=== PATIENT | male | born 1930 | race Caucasian/White ===

== ENCOUNTER 2016-08-05 15:42 | Observation (INO) | payer MEDICARE, OTHER ==
[~2016-08-05] VITALS: Ht 182.9 cm; Wt 90.0 kg
[2016-08-05 15:50] VITALS: BP 149/96; PULSE 119; RESP 20; TEMP 98.1; O2SAT 99
[2016-08-05 15:56] VITALS: BP 149/96; PULSE 122; RESP 20; TEMP 98.1; O2SAT 99
--- NOTE | 2016-08-05 15:59 | PD ---
HPI Chief Complaint: Psychiatric Symptoms Time Seen by Provider: 15:57 Travel History International Travel<30 days: No Contact w/Intl Traveler<30days: No Traveled to known affect area: No History of Present Illness HPI Patient comes in under a [place] act by police for allegedly becoming aggressive and shoveling family. Patient has a reported history is Alzheimer's and does not recall the incident. Patient is uncertain why he is here. Denies any medical complaints currently. Denies any chest pain, shortness of breath, nausea or vomiting, abdominal pain, fevers, headache, or pain anywhere. PFSH Past Medical History Atrial Fibrillation: Yes Dementia: Yes (Alzheimer's) Hypertension: Yes Social History Alcohol Use: Yes Tobacco Use: No Substance Use: No Allergies-Medications (Allergen,Severity, Reaction): Coded Allergies: No Known Allergies (Unverified , 08/05/16) Reported Meds & Prescriptions Reported Meds & Active Scripts Active Reported Thiamine HCl 1 Pow Pow Unknown Dose PO DAILY Finasteride 5 Mg Tab 5 Mg PO TID Do not crush. Multiple Vitamin 1 Tab 1 Tab PO DAILY Aricept (Donepezil) 5 Mg Tab 5 Mg PO HS Folate (Folic Acid) 1 Mg Tab 1 Mg PO DAILY Amlodipine (Amlodipine Besylate) 5 Mg Tab 5 Mg PO DAILY Toprol XL (Metoprolol Succinate) 25 Mg Tab 25 Mg PO TID Lisinopril 10 Mg Tab 10 Mg PO BID Review of Systems Except as stated in HPI: all other systems reviewed are Neg Physical Exam Narrative GENERAL: Well-developed, overly nourished, in no acute distress, and non-ill appearing. SKIN: Warm and dry. HEAD: Atraumatic. Normocephalic. EYES: Pupils equal and round. EOMI. No scleral icterus. No injection or drainage. ENT: No nasal bleeding or discharge. Mucous membranes pink and moist. NECK: Trachea midline. Supple. No nuclear rigidity. CARDIOVASCULAR: Regular rate and rhythm. No murmur appreciated. RESPIRATORY: No accessory muscle use. No respiratory distress. Clear to auscultation. Breath sounds equal bilaterally. MUSCULOSKELETAL: No obvious deformities. No clubbing. No cyanosis. No edema. Full range of motion. NEUROLOGICAL: Awake and alert. No obvious cranial nerve deficits. Motor grossly within normal limits. Normal speech. PSYCHIATRIC: Appropriate mood and affect; insight and judgment normal. Data Data Last Documented VS Vital Signs Date Time Temp Pulse Resp B/P Pulse Ox O2 Delivery O2 Flow Rate FiO2 08/05/16 15:56 98.1 122 20 149/96 99 Room Air Orders Complete Blood Count With Diff (08/05/16 15:55) Comprehensive Metabolic Panel (08/05/16 15:55) Urinalysis - C+S If Indicated (08/05/16 15:55) Psych Screen (08/05/16 15:55) Drug Screen, Random Urine (08/05/16 15:55) Alcohol (Ethanol) (08/05/16 15:55) Salicylates (Aspirin) (08/05/16 15:55) Tylenol (Acetaminophen) (08/05/16 15:55) Electrocardiogram (08/05/16 ) Sodium Chlor 0.9% 1000 Ml Inj (Ns 1000 M (08/05/16 16:45) Sodium Chlorid 0.9% 500 Ml Inj (Ns 500 M (08/05/16 16:45) Prothrombin Time / Inr (Pt) (08/05/16 16:49) Act Partial Throm Time (Ptt) (08/05/16 16:49) Diet Heart Healthy (08/05/16 Dinner) Labs Laboratory Tests Test 08/05/16 08/05/16 08/05/16 16:10 16:25 16:55 White Blood Count 6.5 TH/MM3 Red Blood Count 4.82 MIL/MM3 Hemoglobin 14.7 GM/DL Hematocrit 43.3 % Mean Corpuscular Volume 89.9 FL Mean Corpuscular Hemoglobin 30.6 PG Mean Corpuscular Hemoglobin 34.0 % Concent Red Cell Distribution Width 13.0 % Platelet Count 150 TH/MM3 Mean Platelet Volume 7.7 FL Neutrophils (%) (Auto) 82.6 % Lymphocytes (%) (Auto) 8.9 % Monocytes (%) (Auto) 6.4 % Eosinophils (%) (Auto) 0.4 % Basophils (%) (Auto) 1.7 % Neutrophils # (Auto) 5.4 TH/MM3 Lymphocytes # (Auto) 0.6 TH/MM3 Monocytes # (Auto) 0.4 TH/MM3 Eosinophils # (Auto) 0.0 TH/MM3 Basophils # (Auto) 0.1 TH/MM3 CBC Comment DIFF FINAL Differential Comment Sodium Level 141 MEQ/L Potassium Level 5.3 MEQ/L Chloride Level 107 MEQ/L Carbon Dioxide Level 22.2 MEQ/L Anion Gap 12 MEQ/L Blood Urea Nitrogen 14 MG/DL Creatinine 1.56 MG/DL Estimat Glomerular Filtration 42 ML/MIN Rate Random Glucose 92 MG/DL Calcium Level 8.8 MG/DL Total Bilirubin 0.7 MG/DL Aspartate Amino Transf 46 U/L (AST/SGOT) Alanine Aminotransferase 21 U/L (ALT/SGPT) Alkaline Phosphatase 54 U/L Total Protein 7.3 GM/DL Albumin 3.6 GM/DL Salicylates Level LESS THAN 1.7 MG/DL Acetaminophen Level LESS THAN 2.0 MCG/ML Ethyl Alcohol Level 48 MG/DL Urine Color YELLOW Urine Turbidity CLEAR Urine pH 5.5 Urine Specific [place] 1.009 Urine Protein TRACE mg/dL Urine Glucose (UA) NEG mg/dL Urine Ketones NEG mg/dL Urine Occult Blood NEG Urine Nitrite NEG Urine Bilirubin NEG Urine Urobilinogen LESS THAN 2.0 MG/DL Urine Leukocyte Esterase NEG Urine RBC LESS THAN 1 /hpf Urine WBC 1 /hpf Urine Hyaline Casts 2 /lpf Urine Mucus FEW /lpf Microscopic Urinalysis Comment CULT NOT INDICATED Prothrombin Time 11.6 SEC Prothromb Time International 1.0 RATIO Ratio Activated Partial 22.2 SEC Thromboplast Time MDM Medical Decision Making Medical Screen Exam Complete: Yes Emergency Medical Condition: Yes Interpretation(s) EKG reveiwed by Dr. Tamez shows A-fib with ventricular rate of 118. No STEMI. Differential Diagnosis A. fib with RVR, electrolyte abnormality, intoxication, dementia, other Narrative Course Patient seen and examined. Initial laboratory studies were obtained and reviewed. Patient is hydrated with IV fluid. EKG is obtained and reviewed by Dr. Tamez. Discussed patient with Dr. Tamez who recommends having the patient placed in observation for acute kidney injury. Discussed also has plan care of patient. All questions were answered. Physician Communication Physician Communication [phone] Hernandez, who is agreeable to admit the patient. Diagnosis Primary Impression: Acute kidney injury Admitting Information Admitting Physician Requests: Observation Condition: Stable Sincere Wood Aug 05, 2016 15:59
[2016-08-05 16:37] LABS: AUTOMATED NEUTROPHIL # 5.4 TH/MM3 (1.8-7.7); BASOPHIL # 0.1 TH/MM3 (0-0.2); BASOPHIL % 1.7 % (0.0-2.0); EOSINOPHIL % 0.4 % (0.0-4.0); HEMATOCRIT 43.3 % (39.0-51.0); HEMO FLAGS DIFF FINAL; LYMPH % 8.9 % (9.0-44.0); LYMPHOCYTE # 0.6 TH/MM3 (1.0-4.8); MEAN CELL VOLUME 89.9 FL (80.0-100.0); MEAN CORPUSCULAR HEMOGLOBIN 30.6 PG (27.0-34.0); MONO % 6.4 % (0.0-8.0); NEUT % 82.6 % (16.0-70.0); PLATELET COUNT 150 TH/MM3 (150-450); RED BLOOD COUNT 4.82 MIL/MM3 (4.50-5.90); WHITE BLOOD COUNT 6.5 TH/MM3 (4.0-11.0)
[2016-08-05] MEDS ORDERED: SODIUM CHLOR 0.9% 1000 ML INJ 1,000 ML IV ONE (16:45)
[2016-08-05] MEDS ORDERED: SODIUM CHLORID 0.9% 500 ML INJ 500 ML IV ONE (16:45)
[2016-08-05 16:55] LABS: ANION GAP 12 MEQ/L (5-15); AST (GOT) 46 U/L (15-37); BICARBONATE 22.2 MEQ/L (21.0-32.0); BLOOD UREA NITROGEN 14 MG/DL (7-18); CHLORIDE 107 MEQ/L (98-107); GLOMERULAR FILTRATION RATE 42 ML/MIN (>89); SODIUM (NA) 141 MEQ/L (136-145)
[2016-08-05 17:01] LABS: ALKALINE PHOSPHATASE 54 U/L (45-117); TOTAL BILIRUBIN ADULT 0.7 MG/DL (0.2-1.0)
[2016-08-05 17:11] LABS: ACETAMINOPHEN LESS THAN 2.0 MCG/ML (10.0-30.0); POTASSIUM 5.3 MEQ/L (3.5-5.1)
[2016-08-05 17:19] LABS: BLOOD, URINE NEG (NEG); COMMENT (UR) CULT NOT INDICATED; CULTURE IF INDICATED CULT NOT INDICATED; GLUCOSE,URINE NEG (NEG); HYALINE CAST, URINE 2 /lpf (RARE); KETONE, URINE NEG (NEG); MUCUS URINE FEW /lpf (OCC); NITRITE,URINE NEG (NEG); PH, URINE 5.5 (5.0-8.5); URINE COLOR YELLOW (YELLW/STRAW)
[2016-08-05] MEDS ORDERED: ARIC5TAB PO (17:28)
[2016-08-05] MEDS ORDERED: LISI10TA3 PO (17:28)
[2016-08-05] MEDS ORDERED: AMLO5TAB2 PO (17:28)
[2016-08-05] MEDS ORDERED: FOLI1TAB4 PO (17:28)
[2016-08-05] MEDS ORDERED: TOPR25TA PO (17:28)
[2016-08-05 17:29] LABS: APTT (PATIENT) 22.2 SEC (24.3-30.1); PROTHROMBIN TIME - PATIENT 11.6 SEC (9.8-11.6)
[2016-08-05] MEDS ORDERED: THIAPOW36 PO (17:39)
[2016-08-05] MEDS ORDERED: MULTTAB67 PO (17:39)
[2016-08-05] MEDS ORDERED: FINA5TAB2 PO (17:39)
[2016-08-05 17:56] LABS: ALT (GPT) 21 U/L (12-78)
[2016-08-05] MEDS ORDERED: HALOPERIDOL LACTATE 5 MG/ML AMP IM PRN (18:30)
--- NOTE | 2016-08-05 18:33 | HHI.HP ---
[facility] Service [facility] Primary Care Physician Unknown Admission Diagnosis acute kidney injury Diagnoses: (1) Acute kidney injury Diagnosis: Principal (2) Dementia with aggressive behavior Diagnosis: Principal Chief Complaint: ' the officer told me to come to the hospital'. Travel History International Travel<30 Days: No Contact w/Intl Traveler <30 Da: No Traveled to Known Affected Are: No History of Present Illness patient is a 86 y/o male with history of dementia who was brought to ER under a cobian act with aggressive behavior. the patient is not a good historian and is not sure why he was brought to the hospital. according to ER documents, the patient had aggressive behavior towards the family and the police was called. at the time of my evaluation he was resting comfortably with no distress. he denies any abdominal pain, chest pain or sob. he denies any nausea or vomiting. Review of Systems ROS Limitations: Poor Historian Past Family Social History Past Medical History hypertension dementia atrial fibrillation Reported Medications Thiamine HCl 1 Pow Pow Unknown Dose PO DAILY Finasteride 5 Mg Tab 5 Mg PO TID Do not crush. Multiple Vitamin 1 Tab 1 Tab PO DAILY Aricept (Donepezil) 5 Mg Tab 5 Mg PO HS Folate (Folic Acid) 1 Mg Tab 1 Mg PO DAILY Amlodipine (Amlodipine Besylate) 5 Mg Tab 5 Mg PO DAILY Toprol XL (Metoprolol Succinate) 25 Mg Tab 25 Mg PO TID Lisinopril 10 Mg Tab 10 Mg PO BID Allergies: Coded Allergies: No Known Allergies (Unverified , 08/05/16) Active Ordered Medications Current Medications Sodium Chloride 1,000 ml @ 999 mls/hr BOLUS ONCE IV ; Start 08/05/16 at 16:45 ; Stop 08/05/16 at 16:45; Status DC Sodium Chloride (NS 500 ml Inj) 500 ml @ 500 mls/hr BOLUS ONCE IV Last administered on 08/05/16t 16:45; Start 08/05/16 at 16:45; Stop 08/05/16 at 17:44 ; Status DC Social History quit smoking years ago but drinks. Physical Exam Vital Signs Vital Signs Date Time Temp Pulse Resp B/P Pulse Ox O2 Delivery O2 Flow Rate FiO2 08/05/16 15:56 98.1 122 20 149/96 99 Room Air 08/05/16 15:50 98.1 119 20 149/96 99 Physical Exam GENERAL: This is a well-nourished, well-developed patient, in no apparent distress. SKIN: No rashes, ecchymoses or lesions. Cool and dry. HEAD: Atraumatic. Normocephalic. No temporal or scalp tenderness. EYES: Pupils equal round and reactive. Extraocular motions intact. No scleral icterus. No injection or drainage. ENT: Nose without bleeding, purulent drainage or septal hematoma. Throat without erythema, tonsillar hypertrophy or exudate. Uvula midline. Airway patent. NECK: Trachea midline. No JVD or lymphadenopathy. Supple, nontender, no meningeal signs. CARDIOVASCULAR: Regular rate and rhythm without murmurs, gallops, or rubs. RESPIRATORY: Clear to auscultation. Breath sounds equal bilaterally. No wheezes , rales, or rhonchi. GASTROINTESTINAL: Abdomen soft, non-tender, nondistended. No hepato-splenomegaly , or palpable masses. No guarding. MUSCULOSKELETAL: Extremities without clubbing, cyanosis, or edema. No joint tenderness, effusion, or edema noted. No calf tenderness. Negative Homans sign bilaterally. NEUROLOGICAL: Awake and alert.oriented to person and partly to place. Laboratory Laboratory Tests Test 08/05/16 08/05/16 08/05/16 16:10 16:25 16:55 White Blood Count 6.5 Red Blood Count 4.82 Hemoglobin 14.7 Hematocrit 43.3 Mean Corpuscular Volume 89.9 Mean Corpuscular Hemoglobin 30.6 Mean Corpuscular Hemoglobin 34.0 Concent Red Cell Distribution Width 13.0 Platelet Count 150 Mean Platelet Volume 7.7 Neutrophils (%) (Auto) 82.6 Lymphocytes (%) (Auto) 8.9 Monocytes (%) (Auto) 6.4 Eosinophils (%) (Auto) 0.4 Basophils (%) (Auto) 1.7 Neutrophils # (Auto) 5.4 Lymphocytes # (Auto) 0.6 Monocytes # (Auto) 0.4 Eosinophils # (Auto) 0.0 Basophils # (Auto) 0.1 CBC Comment DIFF FINAL Differential Comment Sodium Level 141 Potassium Level 5.3 Chloride Level 107 Carbon Dioxide Level 22.2 Anion Gap 12 Blood Urea Nitrogen 14 Creatinine 1.56 Estimat Glomerular Filtration 42 Rate Random Glucose 92 Calcium Level 8.8 Total Bilirubin 0.7 Aspartate Amino Transf 46 (AST/SGOT) Alanine Aminotransferase 21 (ALT/SGPT) Alkaline Phosphatase 54 Total Protein 7.3 Albumin 3.6 Salicylates Level LESS THAN 1.7 Acetaminophen Level LESS THAN 2.0 Ethyl Alcohol Level 48 Urine Color YELLOW Urine Turbidity CLEAR Urine pH 5.5 Urine Specific [place] 1.009 Urine Protein TRACE Urine Glucose (UA) NEG Urine Ketones NEG Urine Occult Blood NEG Urine Nitrite NEG Urine Bilirubin NEG Urine Urobilinogen LESS THAN 2.0 Urine Leukocyte Esterase NEG Urine RBC LESS THAN 1 Urine WBC 1 Urine Hyaline Casts 2 Urine Mucus FEW Microscopic Urinalysis Comment CULT NOT INDICATED Prothrombin Time 11.6 Prothromb Time International 1.0 Ratio Activated Partial 22.2 Thromboplast Time Result Diagram: 08/05/16 1610 08/05/16 1610 Assessment and Plan Assessment and Plan A/P - dementia with aggressive behavior; continue Aricept- will consult psych -renal insufficiency with unknown duration with mild hyperkalemia; start gentle IV hydration and monitor renal function and electrolytes -atrial fibrillation with rapid ventricular response- improved after IV fluid- resume metoprolol- not a good candidate for anticoagulation with dementia and alcohol abuse- will start aspirin -alcohol abuse; continue vitamin supplements- haldol as needed -DVT prophylaxis with SCD's Discussed Condition With ER physician and the patient. Perez Hernandez MD Aug 05, 2016 18:33
[2016-08-05] MEDS: SODIUM CHLOR 0.9% 1000 ML INJ 1,000 ML IV SCH (18:46)
[2016-08-05 18:53] VITALS: BP 137/73; PULSE 83; RESP 22; O2SAT 100
[2016-08-05] MEDS ORDERED: DONEPEZIL HCL 5 MG TAB PO SCH (21:00)
[2016-08-05 22:29] VITALS: BP 131/72; PULSE 80; RESP 18; TEMP 98; O2SAT 99
[2016-08-05 22:39] LABS: AMPHETAMINE, URINE NEG (NEG); BARBITURATES, URINE NEG (NEG); COCAINE, URINE NEG (NEG)
[2016-08-06 04:31] VITALS: BP 101/59; PULSE 75; RESP 18; TEMP 98.1; O2SAT 98
[2016-08-06 06:00] LABS: BICARBONATE 24.9 MEQ/L (21.0-32.0); POTASSIUM 3.8 MEQ/L (3.5-5.1)
[2016-08-06 07:27] VITALS: BP 117/71; PULSE 75; RESP 18; TEMP 98.6; O2SAT 97
[2016-08-06] MEDS ORDERED: ASPIRIN EC 81 MG TABEC PO SCH (09:00)
[2016-08-06] MEDS ORDERED: MULTIVITAMIN TAB PO SCH (09:00)
[2016-08-06] MEDS ORDERED: FOLIC ACID 1 MG TAB PO SCH (09:00)
[2016-08-06] MEDS ORDERED: THIAMINE HCL 100 MG TAB PO SCH (09:00)
[2016-08-06] MEDS ORDERED: amLODIPine BESYLATE 5 MG TAB PO SCH (09:00)
[2016-08-06] MEDS: METOPROLOL SUCCINATE 25 MG EXTENDED RELEASE TAB PO SCH ×3 (09:08→17:46)
[2016-08-06] MEDS: FINASTERIDE 5 MG TAB PO SCH ×3 (09:08→17:47)
[2016-08-06] MEDS: SODIUM CHLOR 0.9% 1000 ML INJ 1,000 ML IV SCH (09:09)
[2016-08-06 11:36] VITALS: BP 122/65; PULSE 75; RESP 19; TEMP 98; O2SAT 97
--- NOTE | 2016-08-06 11:47 | HHI.PR ---
Subjective Remarks resting comfortably with no distress. denies chest pain or sob. d/w the RN and no acute issues over night. Objective Vitals Vital Signs Date Time Temp Pulse Resp B/P Pulse Ox O2 Delivery O2 Flow Rate FiO2 08/06/16 07:27 98.6 75 18 117/71 97 08/06/16 04:31 98.1 75 18 101/59 98 08/05/16 22:29 98.0 80 18 131/72 99 08/05/16 19:11 85 18 08/05/16 18:53 83 22 137/73 100 Room Air 08/05/16 15:56 98.1 122 20 149/96 99 Room Air 08/05/16 15:50 98.1 119 20 149/96 99 I/O 08/05/16 08/05/16 08/05/16 08/06/16 08/06/16 08/06/16 07:00 15:00 23:00 07:00 15:00 23:00 Intake Total 240 ml Output Total 500 ml Balance -500 ml 240 ml Intake Oral 240 ml Output Urine Total 500 ml # Voids 1 2 Result Diagram: 08/05/16 1610 08/06/16 0452 Objective Remarks GENERAL: This is a well-nourished, well-developed patient, in no apparent distress. CARDIOVASCULAR: Regular rate and regular rhythm without murmurs, gallops, or rubs. RESPIRATORY: Clear to auscultation. Breath sounds equal bilaterally. No wheezes , rales, or rhonchi. GASTROINTESTINAL: Abdomen soft, non-tender, nondistended. Normal, active bowel sounds MUSCULOSKELETAL: Extremities without clubbing, cyanosis, or edema. NEURO: awake and alert- oriented to person and partly to place. Procedures none Medications and IVs Current Medications Sodium Chloride 1,000 ml @ 999 mls/hr BOLUS ONCE IV ; Start 08/05/16 at 16:45 ; Stop 08/05/16 at 16:45; Status DC Sodium Chloride 500 ml @ 500 mls/hr BOLUS ONCE IV Last administered on 16:45; Start 08/05/16 at 16:45; Stop 08/05/16 at 17:44; Status DC Sodium Chloride (NS 1000 ml Inj) 1,000 ml @ 75 mls/hr [id number] IV Last administered on 08/06/16 09:09; Start 08/05/16 at 18:30 Amlodipine Besylate (Norvasc) 5 mg DAILY PO Last administered on 08/06/16 09: 08; Start 08/06/16 at 09:00 Donepezil HCl (Aricept) 5 mg HS PO Last administered on 08/05/16 22:20; Start 08/05/16 at 21:00 Finasteride (Proscar) 5 mg TID PO Last administered on 08/06/16 09:08; Start 08/06/16 at 09:00 Folic Acid (Folate) 1 mg DAILY PO Last administered on 08/06/16 09:08; Start 08/06/16 at 09:00 Metoprolol Succinate (Toprol Xl) 25 mg TID PO Last administered on 08/06/16 09 :08; Start 08/06/16 at 09:00 Aspirin (Ecotrin Ec) 81 mg DAILY PO Last administered on 08/06/16 09:08; Start 08/06/16 at 09:00 Thiamine HCl (Vitamin B1) 100 mg DAILY PO Last administered on 08/06/16 09:08 ; Start 08/06/16 at 09:00 Multivitamins (Theragran) 1 tab DAILY PO Last administered on 08/06/16 09:08; Start 08/06/16 at 09:00 Haloperidol Lactate (Haldol Inj) 2 mg Q6H PRN IM ANXIETY AND/OR AGITATION; Start 08/05/16 at 18:30 A/P Assessment and Plan A/P - dementia with aggressive behavior; continue Aricept- consulted psych d/w and patient has been accepted to the psych unit unpo discharge. -acute kidney injury-improved. -atrial fibrillation with rapid ventricular response- resolved- continue metoprolol. not a good candidate for anticoagulation with dementia and alcohol abuse- started on aspirin. -alcohol abuse; continue vitamin supplements- -DVT prophylaxis with SCD's Discharge Planning dc to psych unit. see med list. f/u with psych and pcp upon discharge. d/w the patient, RN. d/w . Perez Hernandez MD Aug 06, 2016 11:47
[2016-08-06] MEDS ORDERED: THIAPOW36 PO (11:49)
[2016-08-06] MEDS ORDERED: ASPI81TA11 PO (11:49)
--- NOTE | 2016-08-06 11:49 | HHI.DCPOC ---
Discharge Care Plan Diagnosis: (1) Dementia with aggressive behavior Your Health Problems Are: Anxiety Goals to Promote Your Health * To prevent worsening of your condition and complications * To maintain your health at the optimal level Directions to Meet Your Goals Take your medications as prescribed Follow your dietary instruction Follow activity as directed Keep your appointments as scheduled Take your immunizations and boosters as scheduled If your symptoms worsen call your PCP, if no PCP go to Urgent Care Center or Emergency Room Smoking is Dangerous to Your Health. Avoid second hand smoke Call the 24-hour hour crisis hotline for domestic abuse at Perez Hernandez MD Aug 06, 2016 11:49
--- NOTE | 2016-08-06 11:51 | HHI.DS ---
Discharge Summary Admission Date Aug 05, 2016 at 18:22 Discharge Date: Aug 06, 2016 Admitting Diagnosis acute kidney injury (1) Acute kidney injury ICD Code: N17.9 Diagnosis: Principal (2) Dementia with aggressive behavior ICD Code: F03.91 Diagnosis: Principal Procedures none Brief History - From Admission patient is a 86 y/o male with history of dementia who was brought to ER under a cobian act with aggressive behavior. the patient is not a good historian and is not sure why he was brought to the hospital. according to ER documents, the patient had aggressive behavior towards the family and the police was called. at the time of my evaluation he was resting comfortably with no distress. he denies any abdominal pain, chest pain or sob. he denies any nausea or vomiting. CBC/BMP: 08/05/16 1610 08/06/16 0452 Significant Findings Laboratory Tests Test 08/05/16 08/05/16 08/05/16 08/06/16 16:10 16:25 16:55 04:52 Neutrophils (%) (Auto) 82.6 % (16.0-70.0) Lymphocytes (%) (Auto) 8.9 % (9.0-44.0) Lymphocytes # (Auto) 0.6 TH/MM3 (1.0-4.8) Potassium Level 5.3 MEQ/L (3.5-5.1) Creatinine 1.56 MG/DL (0.60-1.30) Estimat Glomerular Filtration 42 ML/MIN (>89) 54 ML/MIN (>89) Rate Aspartate Amino Transf 46 U/L (15-37) (AST/SGOT) Salicylates Level LESS THAN 1.7 MG/DL (2.8-20.0) Acetaminophen Level LESS THAN 2.0 MCG/ML (10.0-30.0) Ethyl Alcohol Level 48 MG/DL (0-5) Urine Mucus FEW /lpf (OCC) Activated Partial 22.2 SEC Thromboplast Time (24.3-30.1) Sodium Level 146 MEQ/L (136-145) Chloride Level 112 MEQ/L (98-107) Calcium Level 8.4 MG/DL (8.5-10.1) PE at Discharge GENERAL: This is a well-nourished, well-developed patient, in no apparent distress. CARDIOVASCULAR: Regular rate and regular rhythm without murmurs, gallops, or rubs. RESPIRATORY: Clear to auscultation. Breath sounds equal bilaterally. No wheezes , rales, or rhonchi. GASTROINTESTINAL: Abdomen soft, non-tender, nondistended. Normal, active bowel sounds MUSCULOSKELETAL: Extremities without clubbing, cyanosis, or edema. NEURO: awake and alert- oriented to person and partly to place. Hospital Course - dementia with aggressive behavior; continue Aricept- consulted psych d/w and patient has been accepted to the psych unit unpo discharge. -acute kidney injury-improved. -atrial fibrillation with rapid ventricular response- resolved- continue metoprolol. not a good candidate for anticoagulation with dementia and alcohol abuse- started on aspirin. -alcohol abuse; continue vitamin supplements- -DVT prophylaxis with SCD's Pt Condition on Discharge: Good Discharge Disposition: Disc to Psych Care Fac Discharge Time: <= 30 minutes Discharge Instructions DIET: Follow Instructions for: Heart Healthy Diet Activities you can perform: Regular-No Restrictions Follow up Referrals: PCP Follow-up Psychiatry Adult New Medications: Aspirin DR (Aspirin EC) 81 Mg Tabdr 81 MG PO DAILY a-fib Days 30 Ref 0 TAB Changed Medications: Thiamine HCl (Thiamine HCl) 1 Pow Pow 100 MG PO DAILY vitamin supplement Days 30 Ref 0 TAB (Changed from: Unknown Dose ; Refills: ) Continued Medications: Amlodipine (Amlodipine) 5 Mg Tab 5 MG PO DAILY Blood Pressure Management #30 Ref 0 TAB Donepezil (Aricept) 5 Mg Tab 5 MG PO HS Dementia #30 Ref 0 TAB Finasteride (Finasteride) 5 Mg Tab 5 MG PO TID Do not crush. Manage Prostate Problems #30 Ref 0 TAB Folic Acid (Folate) 1 Mg Tab 1 MG PO DAILY Nutritional Supplement Ref 0 TAB Metoprolol Succinate ER 24 HR (Toprol XL) 25 Mg Tab 25 MG PO TID #30 Ref 0 TAB Multiple Vitamin (Multiple Vitamin) 1 Tab 1 TAB PO DAILY Nutritional Supplement Ref 0 TAB Discontinued Medications: Lisinopril (Lisinopril) 10 Mg Tab 10 MG PO BID #30 Ref 0 TAB Perez Hernandez MD Aug 06, 2016 11:51
[2016-08-06] MEDS ORDERED: QUEtiapine FUMARATE 25 MG TAB PO SCH (12:00)
[2016-08-06] MEDS ORDERED: HALOPERIDOL LACTATE 5 MG/ML AMP IM PRN (12:00)
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
--- NOTE | 2016-08-06 12:33 | EKG ---
Date Performed: 08/05/2016 Time Performed: 16:25:40 PTAGE: 86 years EKG: ATRIAL FIBRILLATION WITH RAPID VENTRICULAR RESPONSE LOW QRS VOLTAGE IN EXTREMITY LEADS MODE RATE ST DEPRESSION ABNORMAL ECG NO PREVIOUS TRACING DOCTOR: David Boggs Interpretating Date/Time 08/06/2016 12:30:16
[2016-08-06 15:34] VITALS: BP 118/66; PULSE 75; RESP 18; TEMP 98.6; O2SAT 99
== END 2016-08-06 20:02 ==
LOC: NEPA 15:42 → NEDA 18:22 → NEPHCDU 22:28
PROVIDERS: ADMIT Internal Medicine; ATTEND Internal Medicine
DX: F02.81 Dementia in other diseases classified elsewhere, unspecified severity, with behavioral disturbance (principal); N17.9 Acute kidney failure, unspecified; I48.91 Unspecified atrial fibrillation; I10 Essential (primary) hypertension; G30.9 Alzheimer's disease, unspecified
CPT/HCPCS: 80048; 80053; 80307; 80320; 81001; 85025; 85610; 85730; 93005; 96360; 99285; G0378; J7030; J7040; 80329; G0480

== ENCOUNTER 2016-08-06 19:00 | Inpatient (IN) | payer OTHER, MEDICARE ==
[~2016-08-06] VITALS: Ht 182.9 cm; Wt 87.3 kg
[~2016-08-06 19:00] MED LIST: AMLO5TAB2 PO; ARIC5TAB PO; ASPI81TA11 PO; FINA5TAB2 PO; FOLI1TAB4 PO; LISI10TA3 PO; MULTTAB67 PO; THIAPOW36 PO; TOPR25TA PO
[2016-08-06 22:10] VITALS: BP 130/63; PULSE 69; RESP 18; TEMP 100.9; O2SAT 99
[2016-08-06] MEDS ORDERED: MAGNESIUM HYDROXIDE SUSP 30 ML CUP PO PRN (22:15)
[2016-08-06] MEDS ORDERED: LORazepam 0.5 MG TAB age > 65 yrs PO PRN (22:15)
[2016-08-06] MEDS ORDERED: ALUMINUM/MAGNESIUM/SIMETH 30 ML CUP PO PRN (22:15)
[2016-08-06] MEDS ORDERED: ACETAMINOPHEN 325 MG TAB PO PRN (22:15)
[2016-08-06] MEDS ORDERED: LORazepam 2 MG/ML VIAL - age > 65 yrs IM PRN (22:15)
--- NOTE | 2016-08-07 03:11 | PD.CONS ---
[facility] By Julio Reason for Consult medical management Primary Care Physician Unknown Diagnoses: History of Present Illness 86 y/o male with a history of dementia, afib, bph, and htn admitted to the psych department under a cobian act and dementia. [facility] was consulted for medical management of chronic medical conditions, and follow up for afib and DEA. Patient is a poor historian and not able to provide much information. He was seen on 08/06/16 in the main hospital and was being treated for DEA, Afib RVR and dementia. Patient denies any chest pain, sob, fever or chills thouigh Tmax 100.9. No cough, UTI symptoms and diarrhea. He is unsure where he is and what he is here for. Discussed with RN. Electronic records reviewed Review of Systems Constitutional: DENIES: Diaphoretic episodes, Fatigue, Fever, Weight gain, Weight loss, Chills, Dizziness, Change in appetite, Night Sweats Endocrine: DENIES: Heat/cold intolerance, Polydipsia, Polyuria, Polyphagia Eyes: DENIES: Blurred vision, Diplopia, Vision loss, Photosensitivity Ears, nose, mouth, throat: DENIES: Tinnitus, Vertigo, Throat pain, Hoarseness, Epistaxis, Odynophagia Respiratory: DENIES: Cough, Wheezing, Hemoptysis, Sputum production, Shortness of breath Cardiovascular: DENIES: Chest pain, Palpitations, Syncope, Dyspnea on Exertion , PND, Lower Extremity Edema, Orthopnea, Claudication Gastrointestinal: DENIES: Abdominal pain, Black stools, Bloody stools, Constipation, Diarrhea, Nausea, Vomiting, Difficulty Swallowing, Anorexia Genitourinary: DENIES: Urinary frequency, Urinary incontinence, Urgency, Hematuria, Dysuria, Nocturia, Penile Discharge Integumentary: DENIES: Rash Neurologic: DENIES: Headache, Localized weakness, Seizures, Tremor, Poor Balance Psychiatric: COMPLAINS OF: Confusion Past Family Social History Allergies: Coded Allergies: No Known Allergies (Unverified , 08/05/16) Past Medical History HTN AFIB BPH Dementia Past Surgical History No known surgical history Reported Medications Reported Meds & Active Scripts Active Aspirin EC (Aspirin) 81 Mg Tabdr 81 Mg PO DAILY 30 Days Thiamine HCl 1 Pow Pow 100 Mg PO DAILY 30 Days Reported Finasteride 5 Mg Tab 5 Mg PO TID Do not crush. Multiple Vitamin 1 Tab 1 Tab PO DAILY Aricept (Donepezil) 5 Mg Tab 5 Mg PO HS Folate (Folic Acid) 1 Mg Tab 1 Mg PO DAILY Amlodipine (Amlodipine Besylate) 5 Mg Tab 5 Mg PO DAILY Toprol XL (Metoprolol Succinate) 25 Mg Tab 25 Mg PO TID Active Ordered Medications Current Medications Medications (Trade) Dose Ordered Sig/Birdie Route Start Time Stop Time Status Last Admin (Ativan) 0.5 mg Q12H PRN PO 08/06/16 22:15 (Ativan Inj) 0.5 mg Q12H PRN IM 08/06/16 22:15 (Tylenol) 650 mg Q4H PRN PO 08/06/16 22:15 (Milk Of Magnesia Liq) 30 ml DAILY PRN PO 08/06/16 22:15 (Mag-Al Plus Susp Liq) 30 ml Q6H PRN PO 08/06/16 22:15 (Norvasc) 5 mg DAILY PO 08/07/16 09:00 (Ecotrin Ec) 81 mg DAILY PO 08/07/16 09:00 (Aricept) 5 mg HS PO 08/07/16 21:00 (Proscar) 5 mg DAILY PO 08/07/16 09:00 (Folate) 1 mg DAILY PO 08/07/16 09:00 (Toprol Xl) 25 mg TID PO 08/07/16 09:00 (Theragran) 1 tab DAILY PO 08/07/16 09:00 (Vitamin B1) 100 mg DAILY PO 08/07/16 09:00 Family History Patient denies heart disease Social History Tobacco use: Denies Alcohol use: occasionally Illcit drug use: denies Physical Exam Vital Signs Vital Signs Date Time Temp Pulse Resp B/P Pulse Ox O2 Delivery O2 Flow Rate FiO2 08/06/16 22:10 100.9 69 18 130/63 99 Physical Exam GENERAL: This is a well-nourished, well-developed patient, in no apparent distress. SKIN: No rashes, ecchymoses or lesions. Cool and dry. HEAD: Atraumatic. Normocephalic. EYES: Pupils equal round and reactive. Extraocular motions intact. No scleral icterus. No injection or drainage. ENT: Nose without bleeding, purulent drainage or septal hematoma.Airway patent. NECK: Trachea midline. No JVD or lymphadenopathy. CARDIOVASCULAR: AFIB rhythm without murmurs, gallops, or rubs. RESPIRATORY: Clear to auscultation. Breath sounds equal bilaterally. No wheezes , rales, or rhonchi. GASTROINTESTINAL: Abdomen soft, non-tender, nondistended. No guarding. MUSCULOSKELETAL: Extremities without clubbing, cyanosis, or edema. No joint tenderness, effusion, or edema noted. No calf tenderness. NEUROLOGICAL: Awake, alert and oriented x2 . Cranial nerves II through XII intact. Motor and sensory grossly within normal limits. Five out of 5 muscle strength in all muscle groups. Normal speech. Calm and cooperative Assessment and Plan Problem List: (1) Dementia with aggressive behavior ICD Code: F03.91 Status: Acute (2) HTN (hypertension) ICD Code: I10 Status: Chronic (3) Afib ICD Code: I48.91 Status: Chronic (4) BPH (benign prostatic hyperplasia) ICD Code: N40.0 Status: Chronic Assessment and Plan 86 y/o male with a history of dementia, afib, and htn was seen in the psych department for medical management. Dementia with aggressive behavior -Managed per psych AFIB, chronic EKG from 08/06/16 shows afib -Reorder home medications: metoprolol, asa. Not a good candidate for anticoagulation secondary to alcohol use. [id number] score at least 2 HTN, chronic -Cont home medications: Norvasc -Monitor vitals BPH, chronic -Cont home medication: Proscar DVT prophylaxis: pt is ambulatory [facility] will continue to monitor and follow patient. Written by Deborah PARKER, acting as scribe for Dr. Rodriguez on 08/07/16 at 0254. The documentation accurately reflects the work performed [id number] and decisions made by me and the physician Dr. Rodriguez on 08/07/16. The documentation accurately reflects the work performed [id number] by me on at 05:09. Discussed Condition With Patient and RN Deborah Pennington Aug 07, 2016 03:11 Martir Rodriguez MD Aug 07, 2016 05:09
[2016-08-07 06:35] VITALS: BP 99/53; PULSE 63; RESP 18; TEMP 98.4; O2SAT 98
[2016-08-07 08:18] LABS: ANION GAP 11 MEQ/L (5-15); BICARBONATE 23.1 MEQ/L (21.0-32.0); BLOOD UREA NITROGEN 12 MG/DL (7-18); CHLORIDE 111 MEQ/L (98-107); GLOMERULAR FILTRATION RATE 55 ML/MIN (>89); POTASSIUM 3.6 MEQ/L (3.5-5.1); SODIUM (NA) 145 MEQ/L (136-145)
[2016-08-07 08:21] LABS: HDL CHOLESTEROL 106.5 MG/DL (40.0-60.0); LDL CHOLESTEROL 22 MG/DL (0-99)
[2016-08-07] MEDS: METOPROLOL SUCCINATE 25 MG EXTENDED RELEASE TAB PO SCH ×3 (09:00→17:56)
[2016-08-07] MEDS: amLODIPine BESYLATE 5 MG TAB PO SCH (09:00)
[2016-08-07] MEDS: FINASTERIDE 5 MG TAB PO SCH (09:00)
[2016-08-07 10:29] VITALS: BP 118/54; PULSE 80
[2016-08-07] MEDS: ASPIRIN EC 81 MG TABEC PO SCH (10:36)
[2016-08-07] MEDS: MULTIVITAMIN TAB PO SCH (10:36)
[2016-08-07] MEDS: THIAMINE HCL 100 MG TAB PO SCH (10:36)
[2016-08-07] MEDS: FOLIC ACID 1 MG TAB PO SCH (10:36)
[2016-08-07 12:27] VITALS: BP 124/70; PULSE 56
[2016-08-07 12:28] VITALS: BP 126/71; PULSE 53
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
[2016-08-07] MEDS ORDERED: hydrOXYzine HCL 50 MG TAB PO PRN (13:00)
[2016-08-07] MEDS ORDERED: HALOPERIDOL 2 MG TAB PO PRN (13:00)
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
[2016-08-07 15:47] LABS: HEMOGLOBIN A1a 0.9 %; HEMOGLOBIN A1b 1.2 %; HEMOGLOBIN Ao 87.2 %; HEMOGLOBIN LA1C 1.9 %; HEMOGLOBIN P3 3.4 %
[2016-08-07 17:46] VITALS: BP 144/85; PULSE 68
[2016-08-07 18:00] VITALS: BP 144/85; PULSE 68; RESP 18; TEMP 98.4; O2SAT 98
[2016-08-07] MEDS: DONEPEZIL HCL 5 MG TAB PO SCH (22:00)
[2016-08-07] MEDS: QUEtiapine FUMARATE 25 MG TAB PO SCH (22:00)
[2016-08-08 06:43] VITALS: BP 119/69; PULSE 63; RESP 18; TEMP 98.6; O2SAT 99
[2016-08-08 07:35] LABS: AUTOMATED NEUTROPHIL # 2.3 TH/MM3 (1.8-7.7); BASOPHIL % 0.4 % (0.0-2.0); EOSINOPHIL # 0.1 TH/MM3 (0-0.4); EOSINOPHIL % 2.8 % (0.0-4.0); HEMO FLAGS DIFF FINAL; LYMPH % 30.5 % (9.0-44.0); LYMPHOCYTE # 1.3 TH/MM3 (1.0-4.8); MEAN CELL VOLUME 89.9 FL (80.0-100.0); MEAN CORPUSCULAR HEMOGLOBIN 30.2 PG (27.0-34.0); MEAN CORPUSCULAR HGB CONC 33.6 % (32.0-36.0); MONO % 13.3 % (0.0-8.0); PLATELET COUNT 108 TH/MM3 (150-450); RED BLOOD COUNT 4.12 MIL/MM3 (4.50-5.90); RED CELL DISTRIBUTION WIDTH 12.7 % (11.6-17.2); WHITE BLOOD COUNT 4.3 TH/MM3 (4.0-11.0)
[2016-08-08] MEDS: FINASTERIDE 5 MG TAB PO SCH (08:36)
[2016-08-08] MEDS: METOPROLOL SUCCINATE 25 MG EXTENDED RELEASE TAB PO SCH ×3 (08:37→17:00)
[2016-08-08] MEDS: ASPIRIN EC 81 MG TABEC PO SCH (08:37)
[2016-08-08] MEDS: MULTIVITAMIN TAB PO SCH (08:37)
[2016-08-08] MEDS: THIAMINE HCL 100 MG TAB PO SCH (08:37)
[2016-08-08] MEDS: FOLIC ACID 1 MG TAB PO SCH (08:38)
[2016-08-08] MEDS: QUEtiapine FUMARATE 25 MG TAB PO SCH ×3 (08:38→20:00)
[2016-08-08] MEDS: amLODIPine BESYLATE 5 MG TAB PO SCH (08:38)
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
[2016-08-08] MEDS: DONEPEZIL HCL 5 MG TAB PO SCH (21:00)
[2016-08-08 22:58] VITALS: BP 139/65; PULSE 69; RESP 18; TEMP 98.8; O2SAT 99
[2016-08-09 06:00] VITALS: BP 102/56; PULSE 55; RESP 18; TEMP 99; O2SAT 95
[2016-08-09] MEDS: METOPROLOL SUCCINATE 25 MG EXTENDED RELEASE TAB PO SCH ×3 (09:54→18:14)
[2016-08-09 09:55] VITALS: BP 125/57; PULSE 68; RESP 16; O2SAT 96
[2016-08-09] MEDS: FINASTERIDE 5 MG TAB PO SCH (09:55)
[2016-08-09] MEDS: amLODIPine BESYLATE 5 MG TAB PO SCH (09:56)
[2016-08-09] MEDS: FOLIC ACID 1 MG TAB PO SCH (09:56)
[2016-08-09] MEDS: MULTIVITAMIN TAB PO SCH (09:56)
[2016-08-09] MEDS: THIAMINE HCL 100 MG TAB PO SCH (09:56)
[2016-08-09] MEDS: ASPIRIN EC 81 MG TABEC PO SCH (09:56)
[2016-08-09] MEDS: QUEtiapine FUMARATE 25 MG TAB PO SCH ×3 (12:38→20:33)
--- NOTE | 2016-08-09 14:08 | HHI.PR ---
Subjective Remarks Follow-up visit aarti, A. fib. Patient seen today. Reports she is doing very well. Confused but able to respond to questions and follows commands. Denies pain and discomfort. Denies SOB/ dyspnea. Denies chest pain, palpitations, headaches, dizziness. Denies fevers, chills, n/v/d. Objective Vitals Vital Signs Date Time Temp Pulse Resp B/P Pulse Ox O2 Delivery O2 Flow Rate FiO2 08/09/16 09:55 68 16 125/57 96 08/09/16 06:00 99.0 55 18 102/56 95 08/08/16 22:58 98.8 69 18 139/65 99 I/O 08/08/16 08/08/16 08/08/16 08/09/16 08/09/16 08/09/16 07:00 15:00 23:00 07:00 15:00 23:00 Intake Total 240 ml 0 ml Balance 240 ml 0 ml Intake Oral 240 ml 0 ml # Voids 1 1 1 Result Diagram: 08/08/16 0644 08/07/16 0700 Objective Remarks GENERAL: This is a well-nourished, well-developed patient, in no apparent distress. SKIN: Dry flaky skin. HEENT: Normocephalic. Pupils equal round and reactive. Nose without bleeding. Airway patent. NECK: Trachea midline. No JVD. Supple. CARDIOVASCULAR: Irregular rate and rhythm without murmurs, gallops, or rubs. RESPIRATORY: Clear to auscultation. Breath sounds equal bilaterally. No wheezes , rales, or rhonchi. GASTROINTESTINAL: Abdomen soft, non-tender, nondistended. Bowel Sounds normoactive x4. MUSCULOSKELETAL: Extremities without clubbing, cyanosis, or edema. NEUROLOGICAL: Awake and alert. Oriented x 2. No focal neuro deficit. LIGHT. Normal speech. A/P Problem List: (1) Dementia with aggressive behavior ICD Code: F03.91 Status: Acute (2) HTN (hypertension) ICD Code: I10 Status: Chronic (3) Afib ICD Code: I48.91 Status: Chronic (4) BPH (benign prostatic hyperplasia) ICD Code: N40.0 Status: Chronic Assessment and Plan 86 y/o male with a history of dementia, afib, and htn was seen in the psych department for medical management. Dementia with aggressive behavior -Managed per psych AFIB, chronic EKG from 08/06/16 shows afib -Reorder home medications: metoprolol, asa. Not a good candidate for anticoagulation secondary to alcohol use. - [id number] score at least 2 - Heart rate controlled. HTN, chronic -Cont home medications: Norvasc - Monitor BP trend. Controlled. BPH, chronic -Cont home medication: Proscar DVT prophylaxis: pt is ambulatory Full code Discussed with patient, nursing Stable from Hospitalist standpoint. We will sign off. Reconsult as needed. Mia Tenorio Aug 09, 2016 14:08
--- NOTE | 2016-08-09 14:19 | HHI.PYPN ---
Subjective Remarks Patient seen in [place] with nurse Gabbi and medical student Isabel, patient sitting in chair in the doorway to his room watching the [place]. Chart review. Patient compliant medications. Patient calm pleasant with me though there continues underlying vigilance with potential for possible explosive behavior. For now continue treatment Review of Systems Except as stated in HPI: all other systems reviewed are Neg Objective Alert: Yes [place]: Person Mood: Anxious, Calm Affect: Labile, Restricted Memory Intact: Comment (very poor) Hallucinations: Other (denies) Delusions: No Delusion Type: Other (vigilant) Suicidal: Ideation (denies) Homicidal: Ideation (deny's) Insight/Judgement Very poor Vitals/IOs Vital Signs Date Time Temp Pulse Resp B/P Pulse Ox O2 Delivery O2 Flow Rate FiO2 08/09/16 09:55 68 16 125/57 96 08/09/16 06:00 99.0 Intake and Output 08/08/16 08/08/16 08/09/16 08:00 16:00 00:00 Intake Total 240 ml Balance 240 ml Assessment & Plan Problem List: (1) Dementia of Alzheimer's type with behavioral disturbance ICD Code: G30.8 (2) 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 Compliant medications Justification for Cont. Inpt. At this time patient would decompensate if placed in a lower level of care Discharge Planning To be determined Request HC Surrog/Guard Advoc?: Yes Problem Qualifiers (1) Dementia of Alzheimer's type with behavioral disturbance: Qualified Code: G30.8 - Alzheimer's disease of other onset with behavioral disturbance Pranay Kim MD Aug 09, 2016 14:19
[2016-08-09 18:26] VITALS: BP 139/66; PULSE 56; RESP 18; TEMP 98; O2SAT 96
[2016-08-09] MEDS: DONEPEZIL HCL 5 MG TAB PO SCH (20:33)
[2016-08-10 06:50] VITALS: BP 137/65; PULSE 62; RESP 16; TEMP 98.1; O2SAT 99
[2016-08-10] MEDS: THIAMINE HCL 100 MG TAB PO SCH (08:39)
[2016-08-10] MEDS: amLODIPine BESYLATE 5 MG TAB PO SCH (08:39)
[2016-08-10] MEDS: ASPIRIN EC 81 MG TABEC PO SCH (08:39)
[2016-08-10] MEDS: FOLIC ACID 1 MG TAB PO SCH (08:39)
[2016-08-10] MEDS: FINASTERIDE 5 MG TAB PO SCH (08:39)
[2016-08-10] MEDS: METOPROLOL SUCCINATE 25 MG EXTENDED RELEASE TAB PO SCH ×3 (08:40→18:00)
[2016-08-10] MEDS: MULTIVITAMIN TAB PO SCH (08:40)
[2016-08-10] MEDS: QUEtiapine FUMARATE 25 MG TAB PO SCH ×3 (12:03→20:21)
--- NOTE | 2016-08-10 16:35 | HHI.PYPN ---
Subjective Remarks Patient seen on unit standing in his doorway with medical student Isabel, chart review, patient compliant medications. Patient remains diffusely confused though the vigilance irritability and intrusiveness have softened. There have been no recent behavioral issues. For now continue treatment Review of Systems Except as stated in HPI: all other systems reviewed are Neg Objective Alert: Yes [place]: Person Mood: Anxious, Calm Affect: Labile, Restricted Memory Intact: Comment (very poor) Hallucinations: Other (denies) Delusions: No Delusion Type: Other (vigilant) Suicidal: Ideation (denies) Homicidal: Ideation (deny's) Insight/Judgement Very poor Vitals/IOs Vital Signs Date Time Temp Pulse Resp B/P Pulse Ox O2 Delivery O2 Flow Rate FiO2 08/10/16 06:50 98.1 62 16 137/65 99 Intake and Output 08/09/16 08/09/16 08/10/16 08:00 16:00 00:00 Intake Total 0 ml 840 ml 0 ml Balance 0 ml 840 ml 0 ml Assessment & Plan Problem List: (1) Dementia of Alzheimer's type with behavioral disturbance ICD Code: G30.8 (2) 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 Justification for Cont. Inpt. At this time the patient would significantly decompensate if placed in a lower level of care Discharge Planning To be determined Request HC Surrog/Guard Advoc?: Yes Problem Qualifiers (1) Dementia of Alzheimer's type with behavioral disturbance: Qualified Code: G30.8 - Alzheimer's disease of other onset with behavioral disturbance Pranay Kim MD Aug 10, 2016 16:34
[2016-08-10] MEDS: DONEPEZIL HCL 5 MG TAB PO SCH (20:21)
[2016-08-10 20:47] VITALS: BP 113/61; PULSE 60; RESP 16; TEMP 97.8; O2SAT 97
[2016-08-11 06:37] VITALS: BP 113/58; PULSE 58; RESP 18; TEMP 98; O2SAT 97
[2016-08-11] MEDS: amLODIPine BESYLATE 5 MG TAB PO SCH (09:00)
[2016-08-11] MEDS: METOPROLOL SUCCINATE 25 MG EXTENDED RELEASE TAB PO SCH ×3 (09:00→18:20)
[2016-08-11] MEDS: FINASTERIDE 5 MG TAB PO SCH (09:00)
[2016-08-11] MEDS: MULTIVITAMIN TAB PO SCH (10:35)
[2016-08-11] MEDS: ASPIRIN EC 81 MG TABEC PO SCH (10:35)
[2016-08-11] MEDS: FOLIC ACID 1 MG TAB PO SCH (10:35)
[2016-08-11] MEDS: THIAMINE HCL 100 MG TAB PO SCH (10:35)
[2016-08-11] MEDS: QUEtiapine FUMARATE 25 MG TAB PO SCH ×3 (12:26→20:00)
[2016-08-11 14:22] VITALS: BP 126/60; PULSE 52
[2016-08-11 18:10] VITALS: BP 136/68; PULSE 66
--- NOTE | 2016-08-11 20:38 | HHI.PYPN ---
Subjective Remarks Pt seen and discussed with staff. He has been cooperative with care. No aggression today. He confabulates. No SI/HI. Objective Alert: Yes [place]: Person Mood: Calm Affect: Restricted Memory Intact: Comment (very poor) Hallucinations: Other (denies) Delusions: No Delusion Type: Other (vigilant) Suicidal: Ideation (denies) Homicidal: Ideation (deny's) Insight/Judgement poor Vitals/IOs Vital Signs Date Time Temp Pulse Resp B/P Pulse Ox O2 Delivery O2 Flow Rate FiO2 08/11/16 18:10 66 136/68 08/11/16 06:37 98.0 18 97 Intake and Output 08/10/16 08/10/16 08/11/16 08:00 16:00 00:00 Intake Total 1 ml 360 ml Balance 1 ml 360 ml Assessment & Plan Problem List: (1) Dementia of Alzheimer's type with behavioral disturbance ICD Code: G30.8 (2) 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 Estimated LOS: days Justification for Cont. Inpt. impairments in self care. risk of decompensations Request HC Surrog/Guard Advoc?: Yes Problem Qualifiers (1) Dementia of Alzheimer's type with behavioral disturbance: Qualified Code: G30.8 - Alzheimer's disease of other onset with behavioral disturbance Yvonne Chavis MD Aug 11, 2016 20:38
[2016-08-11] MEDS: DONEPEZIL HCL 5 MG TAB PO SCH (21:00)
[2016-08-11 22:00] VITALS: BP 136/68; PULSE 66; RESP 18; TEMP 97.9; O2SAT 99
[2016-08-12 05:12] VITALS: BP 124/74; PULSE 79; RESP 18; TEMP 98.2; O2SAT 97
[2016-08-12] MEDS: THIAMINE HCL 100 MG TAB PO SCH (09:00)
[2016-08-12] MEDS: amLODIPine BESYLATE 5 MG TAB PO SCH (10:35)
[2016-08-12] MEDS: METOPROLOL SUCCINATE 25 MG EXTENDED RELEASE TAB PO SCH ×3 (10:35→17:44)
[2016-08-12] MEDS: ASPIRIN EC 81 MG TABEC PO SCH (10:35)
[2016-08-12] MEDS: FINASTERIDE 5 MG TAB PO SCH (10:36)
[2016-08-12] MEDS: MULTIVITAMIN TAB PO SCH (10:36)
[2016-08-12] MEDS: FOLIC ACID 1 MG TAB PO SCH (10:36)
[2016-08-12 13:15] VITALS: BP 140/64; PULSE 63
[2016-08-12] MEDS: QUEtiapine FUMARATE 25 MG TAB PO SCH ×3 (13:16→20:00)
--- NOTE | 2016-08-12 13:20 | HHI.PYPN ---
Subjective Remarks Pt seen and discussed with staff. He has been isolative to his room. He has been more irritable today. Cooperative with care. No aggression. Objective Alert: Yes [place]: Person Mood: Calm, Other (irritable) Affect: Restricted Memory Intact: Comment (very poor) Hallucinations: Other (denies) Delusions: No Delusion Type: Other (vigilant) Suicidal: Ideation (denies) Homicidal: Ideation (deny's) Insight/Judgement poor Vitals/IOs Vital Signs Date Time Temp Pulse Resp B/P Pulse Ox O2 Delivery O2 Flow Rate FiO2 08/12/16 13:15 63 140/64 08/12/16 05:12 98.2 18 97 Intake and Output 08/11/16 08/11/16 08/12/16 08:00 16:00 00:00 Intake Total 360 ml 600 ml 2400 ml Balance 360 ml 600 ml 2400 ml Assessment & Plan Problem List: (1) Dementia of Alzheimer's type with behavioral disturbance ICD Code: G30.8 (2) 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 Estimated LOS: days Justification for Cont. Inpt. monitoring for safety Request HC Surrog/Guard Advoc?: Yes Problem Qualifiers (1) Dementia of Alzheimer's type with behavioral disturbance: Qualified Code: G30.8 - Alzheimer's disease of other onset with behavioral disturbance Yvonne Chavis MD Aug 12, 2016 13:20
[2016-08-12 17:25] VITALS: BP 135/70; PULSE 66
[2016-08-12 18:00] VITALS: BP 118/58; PULSE 60; RESP 18; TEMP 99.2; O2SAT 97
[2016-08-12] MEDS: DONEPEZIL HCL 5 MG TAB PO SCH (21:00)
[2016-08-12] MEDS: diphenhydrAMINE HCL 50 MG CAP PO PRN (21:44)
[2016-08-13 05:00] VITALS: BP 122/60; PULSE 59; RESP 18; TEMP 97.3; O2SAT 96
[2016-08-13] MEDS: METOPROLOL SUCCINATE 25 MG EXTENDED RELEASE TAB PO SCH ×3 (09:00→16:52)
[2016-08-13] MEDS: FOLIC ACID 1 MG TAB PO SCH (10:21)
[2016-08-13] MEDS: MULTIVITAMIN TAB PO SCH (10:21)
[2016-08-13] MEDS: ASPIRIN EC 81 MG TABEC PO SCH (10:22)
[2016-08-13] MEDS: amLODIPine BESYLATE 5 MG TAB PO SCH (10:22)
[2016-08-13] MEDS: THIAMINE HCL 100 MG TAB PO SCH (10:22)
[2016-08-13] MEDS: FINASTERIDE 5 MG TAB PO SCH (10:22)
[2016-08-13] MEDS: QUEtiapine FUMARATE 25 MG TAB PO SCH ×3 (12:54→20:52)
--- NOTE | 2016-08-13 14:56 | HHI.PYPN ---
Subjective Remarks Patient discussed with treatment team and chart review, patient seen and unit. It appears patient showing some mild increased irritability towards the afternoon. Remains confused disoriented, will discontinue Seroquel 25 mg at noon and add Seroquel 50 mg at 10 PM to the existing 50 mg dosage Review of Systems Except as stated in HPI: all other systems reviewed are Neg Objective Alert: Yes [place]: Person Mood: Calm, Other (irritable) Affect: Restricted Memory Intact: Comment (very poor) Hallucinations: Other (denies) Delusions: No Delusion Type: Other (vigilant) Suicidal: Ideation (denies) Homicidal: Ideation (deny's) Insight/Judgement Poor Vitals/IOs Vital Signs Date Time Temp Pulse Resp B/P Pulse Ox O2 Delivery O2 Flow Rate FiO2 08/13/16 05:00 97.3 59 18 122/60 96 Intake and Output 08/12/16 08/12/16 08/13/16 08:00 16:00 00:00 Intake Total 0 ml 480 ml 1920 ml Balance 0 ml 480 ml 1920 ml Assessment & Plan Problem List: (1) Dementia of Alzheimer's type with behavioral disturbance ICD Code: G30.8 (2) 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 Inpt. At the present time patient will decompensate if place to the lower level of care Discharge Planning To be determined Request HC Surrog/Guard Advoc?: Yes Problem Qualifiers (1) Dementia of Alzheimer's type with behavioral disturbance: Qualified Code: G30.8 - Alzheimer's disease of other onset with behavioral disturbance Pranay Kim MD Aug 13, 2016 14:56
[2016-08-13] MEDS: diphenhydrAMINE HCL 50 MG CAP PO PRN (20:46)
[2016-08-13] MEDS: DONEPEZIL HCL 5 MG TAB PO SCH (20:46)
[2016-08-14 06:00] VITALS: BP 121/59; PULSE 60; RESP 18; TEMP 98; O2SAT 96
[2016-08-14] MEDS: FINASTERIDE 5 MG TAB PO SCH ×2 (09:10→12:54)
[2016-08-14] MEDS: amLODIPine BESYLATE 5 MG TAB PO SCH (09:10)
[2016-08-14] MEDS: THIAMINE HCL 100 MG TAB PO SCH (09:10)
[2016-08-14] MEDS: METOPROLOL SUCCINATE 25 MG EXTENDED RELEASE TAB PO SCH ×3 (09:10→17:50)
[2016-08-14] MEDS: MULTIVITAMIN TAB PO SCH (09:10)
[2016-08-14] MEDS: ASPIRIN EC 81 MG TABEC PO SCH (09:10)
[2016-08-14] MEDS: FOLIC ACID 1 MG TAB PO SCH (09:11)
[2016-08-14] MEDS: QUEtiapine FUMARATE 25 MG TAB PO SCH ×3 (09:17→21:21)
--- NOTE | 2016-08-14 16:07 | HHI.PYPN ---
Subjective Remarks Patient seen in his room, laying down on his bed, with nurse Kenisha and medical student Lisa. Chart review. Patient compliant with his medications, as a decrease in his paranoia and vigilance and irritability, to remain significantly confused and demented. Was unable to identify my role with him Review of Systems Except as stated in HPI: all other systems reviewed are Neg Objective Alert: Yes [place]: Person Mood: Calm, Other (irritable) Affect: Restricted Memory Intact: Comment (very poor) Hallucinations: Other (denies) Delusions: No Delusion Type: Other (vigilant) Suicidal: Ideation (denies) Homicidal: Ideation (deny's) Insight/Judgement Poor Vitals/IOs Vital Signs Date Time Temp Pulse Resp B/P Pulse Ox O2 Delivery O2 Flow Rate FiO2 08/14/16 06:00 98.0 60 18 121/59 96 Intake and Output 08/13/16 08/13/16 08/14/16 08:00 16:00 00:00 Intake Total 1730 ml Balance 1730 ml Assessment & Plan Problem List: (1) Dementia of Alzheimer's type with behavioral disturbance ICD Code: G30.8 (2) 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 Justification for Cont. Inpt. At this time patient would significantly decompensated placed at a lower level of care Discharge Planning To be determined Request HC Surrog/Guard Advoc?: Yes Problem Qualifiers (1) Dementia of Alzheimer's type with behavioral disturbance: Qualified Code: G30.8 - Alzheimer's disease of other onset with behavioral disturbance Pranay Kim MD Aug 14, 2016 16:07
[2016-08-14 18:15] VITALS: BP 125/66; PULSE 58; RESP 17; TEMP 97.6
[2016-08-14] MEDS: DONEPEZIL HCL 5 MG TAB PO SCH (21:21)
[2016-08-15 06:10] VITALS: BP 125/60; PULSE 67; RESP 18; TEMP 98; O2SAT 98
[2016-08-15] MEDS: THIAMINE HCL 100 MG TAB PO SCH (09:32)
[2016-08-15] MEDS: MULTIVITAMIN TAB PO SCH (09:32)
[2016-08-15] MEDS: ASPIRIN EC 81 MG TABEC PO SCH (09:32)
[2016-08-15] MEDS: amLODIPine BESYLATE 5 MG TAB PO SCH (09:32)
[2016-08-15] MEDS: FOLIC ACID 1 MG TAB PO SCH (09:32)
[2016-08-15] MEDS: METOPROLOL SUCCINATE 25 MG EXTENDED RELEASE TAB PO SCH ×3 (09:32→17:13)
[2016-08-15] MEDS: QUEtiapine FUMARATE 25 MG TAB PO SCH ×3 (10:23→21:10)
--- NOTE | 2016-08-15 10:40 | HHI.PYPN ---
Subjective Remarks Patient seen in his room with nurse Qing, patient calm cooperative stating he slept well. His vague about any contact with his family. States appetite is good. Patient show no significant behavioral problems. Patient scheduled for [place] [facility] tomorrow Review of Systems Except as stated in HPI: all other systems reviewed are Neg Objective Alert: Yes [place]: Person Mood: Calm, Other (irritable) Affect: Restricted Memory Intact: Comment (very poor) Hallucinations: Other (denies) Delusions: No Delusion Type: Other (slightly decreased vigilant) Suicidal: Ideation (denies) Homicidal: Ideation (deny's) Insight/Judgement Poor Vitals/IOs Vital Signs Date Time Temp Pulse Resp B/P Pulse Ox O2 Delivery O2 Flow Rate FiO2 08/15/16 06:10 98.0 67 18 125/60 98 Intake and Output 08/14/16 08/14/16 08/15/16 08:00 16:00 00:00 Intake Total 1010 ml Balance 1010 ml Assessment & Plan Problem List: (1) Dementia of Alzheimer's type with behavioral disturbance ICD Code: G30.8 (2) 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 Patient scheduled for [place] tomorrow Justification for Cont. Inpt. At this time patient will decompensate if placed at a lower level of care Discharge Planning To be determined Request HC Surrog/Guard Advoc?: Yes Problem Qualifiers (1) Dementia of Alzheimer's type with behavioral disturbance: Qualified Code: G30.8 - Alzheimer's disease of other onset with behavioral disturbance Pranay Kim MD Aug 15, 2016 10:39
[2016-08-15 19:59] VITALS: BP 103/58; PULSE 59; RESP 18; TEMP 98.5; O2SAT 98
[2016-08-15] MEDS: DONEPEZIL HCL 5 MG TAB PO SCH (21:09)
[2016-08-15] MEDS: diphenhydrAMINE HCL 50 MG CAP PO PRN (21:09)
[2016-08-16 06:16] VITALS: BP 114/55; PULSE 53; RESP 18; TEMP 97.6; O2SAT 98
[2016-08-16 10:21] VITALS: BP 136/65; PULSE 63
[2016-08-16] MEDS: THIAMINE HCL 100 MG TAB PO SCH (10:23)
[2016-08-16] MEDS: FOLIC ACID 1 MG TAB PO SCH (10:23)
[2016-08-16] MEDS: FINASTERIDE 5 MG TAB PO SCH (10:23)
[2016-08-16] MEDS: MULTIVITAMIN TAB PO SCH (10:23)
[2016-08-16] MEDS: METOPROLOL SUCCINATE 25 MG EXTENDED RELEASE TAB PO SCH ×3 (10:23→18:00)
[2016-08-16] MEDS: ASPIRIN EC 81 MG TABEC PO SCH (10:23)
[2016-08-16] MEDS: amLODIPine BESYLATE 5 MG TAB PO SCH (10:23)
[2016-08-16] MEDS: QUEtiapine FUMARATE 25 MG TAB PO SCH ×3 (10:27→20:39)
[2016-08-16 14:14] VITALS: BP 93/50; PULSE 54
--- NOTE | 2016-08-16 14:20 | HHI.PYPN ---
Subjective Remarks Patient seen in [place] patient's brother and patient's [id number] also testifying. Patient retained by Seconds Handler Erin. Patient showed no insight into his disease became somewhat angry with the pipe fitter helper because she would not release him. Patient continues markedly confused disoriented and labile, though his behaviors have lessened. Compliant medications. Placement may become problematic Review of Systems Except as stated in HPI: all other systems reviewed are Neg Objective Alert: Yes [place]: Person Mood: Calm, Other (irritable) Affect: Restricted Memory Intact: Comment (very poor) Hallucinations: Other (denies) Delusions: No Delusion Type: Other (slightly decreased vigilant) Suicidal: Ideation (denies) Homicidal: Ideation (deny's) Insight/Judgement Very poor Vitals/IOs Vital Signs Date Time Temp Pulse Resp B/P Pulse Ox O2 Delivery O2 Flow Rate FiO2 08/16/16 14:14 54 93/50 08/16/16 06:16 97.6 18 98 Intake and Output 08/15/16 08/15/16 08/16/16 08:00 16:00 00:00 Intake Total 480 ml 480 ml Balance 480 ml 480 ml Assessment & Plan Problem List: (1) Dementia of Alzheimer's type with behavioral disturbance ICD Code: G30.8 (2) 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 Inpt. At this time patient will decompensate if placed in a lower level of care Discharge Planning To be determined Request HC Surrog/Guard Advoc?: Yes Problem Qualifiers (1) Dementia of Alzheimer's type with behavioral disturbance: Qualified Code: G30.8 - Alzheimer's disease of other onset with behavioral disturbance Pranay Kim MD Aug 16, 2016 14:20
[2016-08-16 17:43] VITALS: BP 118/58; PULSE 58
[2016-08-16 18:45] VITALS: BP 119/58; PULSE 60; RESP 18; TEMP 98.6; O2SAT 98
[2016-08-16] MEDS: DONEPEZIL HCL 5 MG TAB PO SCH (20:39)
[2016-08-17 06:44] VITALS: BP 113/55; PULSE 76; RESP 16; TEMP 98.4; O2SAT 98
[2016-08-17] MEDS: METOPROLOL SUCCINATE 25 MG EXTENDED RELEASE TAB PO SCH ×3 (09:34→17:38)
[2016-08-17] MEDS: THIAMINE HCL 100 MG TAB PO SCH (09:34)
[2016-08-17] MEDS: FOLIC ACID 1 MG TAB PO SCH (09:35)
[2016-08-17] MEDS: amLODIPine BESYLATE 5 MG TAB PO SCH (09:35)
[2016-08-17] MEDS: MULTIVITAMIN TAB PO SCH (09:35)
[2016-08-17] MEDS: ASPIRIN EC 81 MG TABEC PO SCH (09:35)
[2016-08-17] MEDS: FINASTERIDE 5 MG TAB PO SCH (09:35)
[2016-08-17] MEDS: QUEtiapine FUMARATE 25 MG TAB PO SCH ×3 (09:39→20:54)
--- NOTE | 2016-08-17 13:09 | HHI.PYPN ---
Subjective Remarks Patient seen in his room nurse Jami and medical student Lisa. Chart reviewed. When asked about his experience in [place] yesterday became somewhat angry placing of the blame on his [id number]. Still continues confused and somewhat labile Review of Systems Except as stated in HPI: all other systems reviewed are Neg Objective Alert: Yes [place]: Person Mood: Calm, Other (irritable) Affect: Restricted Memory Intact: Comment (very poor) Hallucinations: Other (denies) Delusions: No Delusion Type: Other (slightly decreased vigilant) Suicidal: Ideation (denies) Homicidal: Ideation (deny's) Insight/Judgement Very poor Vitals/IOs Vital Signs Date Time Temp Pulse Resp B/P Pulse Ox O2 Delivery O2 Flow Rate FiO2 08/17/16 06:44 98.4 76 16 113/55 98 Intake and Output 08/16/16 08/16/16 08/17/16 08:00 16:00 00:00 Intake Total 600 ml 1300 ml Balance 600 ml 1300 ml Assessment & Plan Problem List: (1) Dementia of Alzheimer's type with behavioral disturbance ICD Code: G30.8 (2) 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 Compliant medications. Though at this time his no behavioral problems Justification for Cont. Inpt. At this time patient decompensate placed in the lower level of care Discharge Planning To be determined Request HC Surrog/Guard Advoc?: Yes Problem Qualifiers (1) Dementia of Alzheimer's type with behavioral disturbance: Qualified Code: G30.8 - Alzheimer's disease of other onset with behavioral disturbance Pranay Kim MD Aug 17, 2016 13:09
[2016-08-17 13:33] VITALS: BP 109/57; PULSE 65
[2016-08-17 18:16] VITALS: BP 114/61; PULSE 76; RESP 18; TEMP 98; O2SAT 99
[2016-08-17] MEDS: DONEPEZIL HCL 5 MG TAB PO SCH (20:54)
[2016-08-18 03:25] VITALS: BP 126/60; PULSE 65
[2016-08-18 06:00] VITALS: BP 110/59; PULSE 55; RESP 16; TEMP 97.8; O2SAT 98
[2016-08-18] MEDS: METOPROLOL SUCCINATE 25 MG EXTENDED RELEASE TAB PO SCH ×3 (09:00→17:35)
[2016-08-18] MEDS: MULTIVITAMIN TAB PO SCH (09:55)
[2016-08-18] MEDS: amLODIPine BESYLATE 5 MG TAB PO SCH (09:55)
[2016-08-18] MEDS: QUEtiapine FUMARATE 25 MG TAB PO SCH ×3 (09:56→20:00)
[2016-08-18] MEDS: ASPIRIN EC 81 MG TABEC PO SCH (09:56)
[2016-08-18] MEDS: FOLIC ACID 1 MG TAB PO SCH (09:56)
[2016-08-18] MEDS: FINASTERIDE 5 MG TAB PO SCH (09:56)
[2016-08-18] MEDS: THIAMINE HCL 100 MG TAB PO SCH (09:56)
--- NOTE | 2016-08-18 13:27 | HHI.PYPN ---
Subjective Remarks Patient was seen and case discussed with nursing. Patient is pleasant and cooperative with exam. Alert and oriented 2. Some confabulation attempting to hide his memory impairment. Mood is "fine." Denies auditory visual hallucinations. Has not been aggressive. His taking his medications. Objective Alert: Yes [place]: Person Mood: Calm, Other (pleasant) Affect: Blunted Memory Intact: Comment (poor) Hallucinations: Other (denies) Delusions: No Delusion Type: Other (slightly decreased vigilant) Suicidal: Ideation (denies) Homicidal: Ideation (deny's) Insight/Judgement Poor Vitals/IOs Vital Signs Date Time Temp Pulse Resp B/P Pulse Ox O2 Delivery O2 Flow Rate FiO2 08/18/16 06:00 97.8 55 16 110/59 98 Intake and Output 08/17/16 08/17/16 08/18/16 08:00 16:00 00:00 Intake Total 360 ml 1320 ml 600 ml Balance 360 ml 1320 ml 600 ml Assessment & Plan Problem List: (1) Dementia of Alzheimer's type with behavioral disturbance ICD Code: G30.8 (2) 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 Inpt. Patient will decompensate in a less restrictive setting Request HC Surrog/Guard Advoc?: Yes Problem Qualifiers (1) Dementia of Alzheimer's type with behavioral disturbance: Qualified Code: G30.8 - Alzheimer's disease of other onset with behavioral disturbance Gerardo Louis DO Aug 18, 2016 13:26
[2016-08-18 18:36] VITALS: BP 117/64; PULSE 86; RESP 18; TEMP 98; O2SAT 98
[2016-08-18] MEDS: DONEPEZIL HCL 5 MG TAB PO SCH (21:00)
[2016-08-19 06:08] VITALS: BP 129/72; PULSE 100; RESP 18; TEMP 97.7; O2SAT 97
[2016-08-19] MEDS: FINASTERIDE 5 MG TAB PO SCH (08:12)
[2016-08-19] MEDS: FOLIC ACID 1 MG TAB PO SCH (08:12)
[2016-08-19] MEDS: THIAMINE HCL 100 MG TAB PO SCH (08:12)
[2016-08-19] MEDS: MULTIVITAMIN TAB PO SCH (08:12)
[2016-08-19] MEDS: amLODIPine BESYLATE 5 MG TAB PO SCH (08:12)
[2016-08-19] MEDS: METOPROLOL SUCCINATE 25 MG EXTENDED RELEASE TAB PO SCH ×3 (08:12→17:46)
[2016-08-19] MEDS: ASPIRIN EC 81 MG TABEC PO SCH (08:12)
--- NOTE | 2016-08-19 13:18 | HHI.PYPN ---
Subjective Remarks Patient was seen and case discussed with nursing. Patient is pleasant and cooperative with exam. Alert and oriented 2. Largely seclusive to self. Pleasant with staff, saying he calls the nurse sugar, however, was not able to say that she was a nurse. Compliant with medications. No aggressive behavior Objective Alert: Yes [place]: Person, Place Mood: Calm, Other (pleasant) Affect: Restricted Memory Intact: Comment (poor) Hallucinations: Other (denies) Delusions: No Delusion Type: Other (slightly decreased vigilant) Suicidal: Ideation (denies) Homicidal: Ideation (deny's) Insight/Judgement Poor Vitals/IOs Vital Signs Date Time Temp Pulse Resp B/P Pulse Ox O2 Delivery O2 Flow Rate FiO2 08/19/16 06:08 97.7 100 18 129/72 97 Intake and Output 08/18/16 08/18/16 08/19/16 08:00 16:00 00:00 Intake Total 600 ml 2280 ml Balance 600 ml 2280 ml Assessment & Plan Problem List: (1) Dementia of Alzheimer's type with behavioral disturbance ICD Code: G30.8 (2) 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 Inpt. Patient will decompensate in a less restrictive setting Request HC Surrog/Guard Advoc?: Yes Problem Qualifiers (1) Dementia of Alzheimer's type with behavioral disturbance: Qualified Code: G30.8 - Alzheimer's disease of other onset with behavioral disturbance Gerardo Louis DO Aug 19, 2016 13:18
[2016-08-19] MEDS: QUEtiapine FUMARATE 25 MG TAB PO SCH ×3 (13:32→21:41)
[2016-08-19 20:30] VITALS: BP 111/69; PULSE 80; RESP 17; TEMP 98.2; O2SAT 97
[2016-08-19] MEDS: diphenhydrAMINE HCL 50 MG CAP PO PRN (21:41)
[2016-08-19] MEDS: DONEPEZIL HCL 5 MG TAB PO SCH (21:42)
[2016-08-20 05:14] VITALS: BP 111/67; PULSE 100; RESP 16; TEMP 97.6; O2SAT 100
[2016-08-20] MEDS: ASPIRIN EC 81 MG TABEC PO SCH (09:37)
[2016-08-20] MEDS: FINASTERIDE 5 MG TAB PO SCH (09:37)
[2016-08-20] MEDS: MULTIVITAMIN TAB PO SCH (09:37)
[2016-08-20] MEDS: amLODIPine BESYLATE 5 MG TAB PO SCH (09:37)
[2016-08-20] MEDS: THIAMINE HCL 100 MG TAB PO SCH (09:37)
[2016-08-20] MEDS: METOPROLOL SUCCINATE 25 MG EXTENDED RELEASE TAB PO SCH ×3 (09:37→18:00)
[2016-08-20] MEDS: FOLIC ACID 1 MG TAB PO SCH (09:37)
[2016-08-20] MEDS: QUEtiapine FUMARATE 25 MG TAB PO SCH ×3 (09:39→20:16)
[2016-08-20 13:50] VITALS: BP 104/54; PULSE 103
--- NOTE | 2016-08-20 16:39 | HHI.PYPN ---
Subjective Remarks Patient discussed with treatment team, chart reviewed, patient sitting unit. Patient continues diffusely confused at times somewhat irritable but overall no significant behavioral problems. Placement remains problematic Review of Systems Except as stated in HPI: all other systems reviewed are Neg Objective Alert: Yes Sully: Person, Place Mood: Calm, Other (pleasant) Affect: Restricted Memory Intact: Comment (poor) Hallucinations: Other (denies) Delusions: No Delusion Type: Other (slightly decreased vigilant) Suicidal: Ideation (denies) Homicidal: Ideation (deny's) Insight/Judgement Poor Vitals/IOs Vital Signs Date Time Temp Pulse Resp B/P Pulse Ox O2 Delivery O2 Flow Rate FiO2 08/20/16 13:50 103 104/54 08/20/16 05:14 97.6 16 100 Intake and Output 08/19/16 08/19/16 08/20/16 08:00 16:00 00:00 Intake Total 550 ml 1680 ml Balance 550 ml 1680 ml Assessment & Plan Problem List: (1) Dementia of Alzheimer's type with behavioral disturbance ICD Code: G30.8 (2) 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 Though at times she show some irritability related to the little insight into his disease Justification for Cont. Inpt. At this time patient would decompensated placed on the lower level of care Discharge Planning To be determined Request HC Surrog/Guard Advoc?: Yes Problem Qualifiers (1) Dementia of Alzheimer's type with behavioral disturbance: Qualified Code: G30.8 - Alzheimer's disease of other onset with behavioral disturbance Pranay Kim MD Aug 20, 2016 16:39
[2016-08-20 18:03] VITALS: BP 96/52
[2016-08-20 18:50] VITALS: BP 96/52; PULSE 112; RESP 16; TEMP 97.7; O2SAT 97
[2016-08-20] MEDS: DONEPEZIL HCL 5 MG TAB PO SCH (20:15)
[2016-08-21 06:19] VITALS: BP 128/62; PULSE 64; RESP 18; TEMP 97.6
[2016-08-21] MEDS: amLODIPine BESYLATE 5 MG TAB PO SCH (09:44)
[2016-08-21] MEDS: THIAMINE HCL 100 MG TAB PO SCH (09:44)
[2016-08-21] MEDS: FOLIC ACID 1 MG TAB PO SCH (09:44)
[2016-08-21] MEDS: FINASTERIDE 5 MG TAB PO SCH (09:44)
[2016-08-21] MEDS: MULTIVITAMIN TAB PO SCH (09:44)
[2016-08-21] MEDS: ASPIRIN EC 81 MG TABEC PO SCH (09:44)
[2016-08-21] MEDS: METOPROLOL SUCCINATE 25 MG EXTENDED RELEASE TAB PO SCH ×3 (09:44→17:55)
--- NOTE | 2016-08-21 09:59 | HHI.PYPN ---
Subjective Remarks Patient seen in day room with nurse Jami and medical student Isabel, chart reviewed, patient continues diffusely confused though when challenged with it gets somewhat irritated. However overall no significant behavioral problems at this time. Compliant medications Review of Systems Except as stated in HPI: all other systems reviewed are Neg Objective Alert: Yes Fitzpatrick: Person, Place Mood: Calm, Other (pleasant) Affect: Restricted Memory Intact: Comment (poor) Hallucinations: Other (denies) Delusions: No Delusion Type: Other (slightly decreased vigilant) Suicidal: Ideation (denies) Homicidal: Ideation (deny's) Insight/Judgement Very poor Vitals/IOs Vital Signs Date Time Temp Pulse Resp B/P Pulse Ox O2 Delivery O2 Flow Rate FiO2 08/21/16 06:19 97.6 64 18 128/62 08/20/16 18:50 97 Intake and Output 08/20/16 08/20/16 08/21/16 08:00 16:00 00:00 Intake Total 1440 ml 1080 ml Balance 1440 ml 1080 ml Assessment & Plan Problem List: (1) Dementia of Alzheimer's type with behavioral disturbance ICD Code: G30.8 (2) 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 Justification for Cont. Inpt. At this time patient will decompensate if placed in a lower level of care Discharge Planning To be determined Request HC Surrog/Guard Advoc?: Yes Problem Qualifiers (1) Dementia of Alzheimer's type with behavioral disturbance: Qualified Code: G30.8 - Alzheimer's disease of other onset with behavioral disturbance Pranay Kim MD Aug 21, 2016 09:59
[2016-08-21] MEDS: QUEtiapine FUMARATE 25 MG TAB PO SCH ×3 (10:19→20:00)
[2016-08-21 13:25] VITALS: BP 90/58; PULSE 88
[2016-08-21 17:40] VITALS: BP 114/62; PULSE 100
[2016-08-21 18:00] VITALS: BP 112/60; PULSE 100; RESP 18; TEMP 97.3; O2SAT 99
[2016-08-21] MEDS: diphenhydrAMINE HCL 50 MG CAP PO PRN (21:00)
[2016-08-21] MEDS: DONEPEZIL HCL 5 MG TAB PO SCH (21:00)
[2016-08-22 05:48] VITALS: BP 126/75; PULSE 121; RESP 19; TEMP 97.4; O2SAT 96
[2016-08-22] MEDS: METOPROLOL SUCCINATE 25 MG EXTENDED RELEASE TAB PO SCH ×3 (09:00→17:37)
[2016-08-22] MEDS: FINASTERIDE 5 MG TAB PO SCH (09:00)
[2016-08-22] MEDS: MULTIVITAMIN TAB PO SCH (09:33)
[2016-08-22] MEDS: ASPIRIN EC 81 MG TABEC PO SCH (09:33)
[2016-08-22] MEDS: amLODIPine BESYLATE 5 MG TAB PO SCH (09:33)
[2016-08-22] MEDS: THIAMINE HCL 100 MG TAB PO SCH (09:33)
[2016-08-22] MEDS: FOLIC ACID 1 MG TAB PO SCH (09:33)
[2016-08-22] MEDS: QUEtiapine FUMARATE 25 MG TAB PO SCH ×3 (11:38→20:44)
[2016-08-22 13:08] VITALS: BP 94/61; PULSE 98; RESP 16
--- NOTE | 2016-08-22 14:22 | HHI.PYPN ---
Subjective Remarks Patient seen in his room with nurse Jami, patient calm cooperative continues diffusely confused all 4 spheres not as angry today as he has been the past few days. For now continue treatment Review of Systems Except as stated in HPI: all other systems reviewed are Neg Objective Alert: Yes Manning: Person, Place Mood: Calm, Other (pleasant) Affect: Restricted (somewhat softening) Memory Intact: Comment (poor) Hallucinations: Other (denies) Delusions: No Delusion Type: Other (slightly decreased vigilant) Suicidal: Ideation (denies) Homicidal: Ideation (deny's) Insight/Judgement Very poor Vitals/IOs Vital Signs Date Time Temp Pulse Resp B/P Pulse Ox O2 Delivery O2 Flow Rate FiO2 08/22/16 13:08 98 16 94/61 08/22/16 05:48 97.4 96 Intake and Output 08/21/16 08/21/16 08/22/16 08:00 16:00 00:00 Intake Total 600 ml 840 ml 480 ml Balance 600 ml 840 ml 480 ml Assessment & Plan Problem List: (1) Dementia of Alzheimer's type with behavioral disturbance ICD Code: G30.8 (2) 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 Inpt. At this time patient will decompensate if placed in a lower level of care Discharge Planning To be determined Request HC Surrog/Guard Advoc?: Yes Problem Qualifiers (1) Dementia of Alzheimer's type with behavioral disturbance: Qualified Code: G30.8 - Alzheimer's disease of other onset with behavioral disturbance Pranay iKm MD Aug 22, 2016 14:22
[2016-08-22 19:09] VITALS: BP 118/67; PULSE 107; RESP 17; TEMP 97.9; O2SAT 97
[2016-08-22] MEDS: DONEPEZIL HCL 5 MG TAB PO SCH (20:44)
[2016-08-23 06:05] VITALS: BP 137/78; PULSE 70; RESP 18; TEMP 97.6
[2016-08-23] MEDS: METOPROLOL SUCCINATE 25 MG EXTENDED RELEASE TAB PO SCH ×3 (09:00→17:05)
[2016-08-23] MEDS: amLODIPine BESYLATE 5 MG TAB PO SCH (09:02)
[2016-08-23] MEDS: FOLIC ACID 1 MG TAB PO SCH (09:02)
[2016-08-23] MEDS: THIAMINE HCL 100 MG TAB PO SCH (09:02)
[2016-08-23] MEDS: ASPIRIN EC 81 MG TABEC PO SCH (09:04)
[2016-08-23] MEDS: MULTIVITAMIN TAB PO SCH (09:04)
[2016-08-23] MEDS: FINASTERIDE 5 MG TAB PO SCH (09:04)
[2016-08-23] MEDS: QUEtiapine FUMARATE 25 MG TAB PO SCH ×3 (09:33→20:00)
--- NOTE | 2016-08-23 14:02 | HHI.PYPN ---
Subjective Remarks Patient seen on unit with floor staff, patient calm cooperative pleasantly confused, compliant medications, this time showing no behavioral issues. Counselor has been contact with patient's family is been some discussion about placement. [place] is a bed available for patient shared with family the need to except that placement sensitivities available and appropriate. However patient has talked to [facility] at. They will have a bed available for the patient tomorrow family would prefer placement that facility. Thus I will delay the placement until tomorrow to [facility]. Review of Systems Except as stated in HPI: all other systems reviewed are Neg Objective Alert: Yes Harmony: Person, Place Mood: Calm, Other (pleasant) Affect: Restricted (somewhat softening) Memory Intact: Comment (poor) Hallucinations: Other (denies) Delusions: No Delusion Type: Other (slightly decreased vigilant) Suicidal: Ideation (denies) Homicidal: Ideation (deny's) Insight/Judgement Very poor Vitals/IOs Vital Signs Date Time Temp Pulse Resp B/P Pulse Ox O2 Delivery O2 Flow Rate FiO2 08/23/16 06:05 97.6 70 18 137/78 08/22/16 19:09 97 Intake and Output 08/22/16 08/22/16 08/23/16 08:00 16:00 00:00 Intake Total 480 ml 1440 ml 840 ml Balance 480 ml 1440 ml 840 ml Assessment & Plan Problem List: (1) Dementia of Alzheimer's type with behavioral disturbance ICD Code: G30.8 (2) 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 Patient to be discharged tomorrow to [facility] Justification for Cont. Inpt. At this time patient will decompensate if placed in a lower level of care Discharge Planning To be determined see above Request HC Surrog/Guard Advoc?: Yes Problem Qualifiers (1) Dementia of Alzheimer's type with behavioral disturbance: Qualified Code: G30.8 - Alzheimer's disease of other onset with behavioral disturbance Pranay Kim MD Aug 23, 2016 14:01
[2016-08-23] MEDS: DONEPEZIL HCL 5 MG TAB PO SCH (20:37)
[2016-08-23] MEDS: diphenhydrAMINE HCL 50 MG CAP PO PRN (20:37)
[2016-08-24 05:30] VITALS: BP 126/60; PULSE 107; RESP 18; TEMP 98.2; O2SAT 99
[2016-08-24] MEDS: amLODIPine BESYLATE 5 MG TAB PO SCH (08:49)
[2016-08-24] MEDS: ASPIRIN EC 81 MG TABEC PO SCH (08:49)
[2016-08-24] MEDS: FOLIC ACID 1 MG TAB PO SCH (08:49)
[2016-08-24] MEDS: MULTIVITAMIN TAB PO SCH (08:49)
[2016-08-24] MEDS: THIAMINE HCL 100 MG TAB PO SCH (08:49)
[2016-08-24] MEDS: FINASTERIDE 5 MG TAB PO SCH (08:49)
[2016-08-24] MEDS: METOPROLOL SUCCINATE 25 MG EXTENDED RELEASE TAB PO SCH (08:49)
[2016-08-24] MEDS ORDERED: FINA5TAB2 PO (09:15)
[2016-08-24] MEDS ORDERED: FOLI1TAB4 PO (09:15)
[2016-08-24] MEDS ORDERED: ARIC5TAB PO (09:15)
[2016-08-24] MEDS ORDERED: ASPI81TA11 PO (09:15)
[2016-08-24] MEDS ORDERED: AMLO5 PO (09:15)
[2016-08-24] MEDS ORDERED: THERTAB15 PO (09:15)
[2016-08-24] MEDS ORDERED: VITA100T2 PO (09:15)
[2016-08-24] MEDS ORDERED: METO25TA6 PO (09:15)
[2016-08-24] MEDS ORDERED: SERO50TA PO (09:15)
[2016-08-24] MEDS: QUEtiapine FUMARATE 25 MG TAB PO SCH (09:20)
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
== END 2016-08-24 11:05 | DRG 57 ==
LOC: H250 19:00
PROVIDERS: ADMIT Psychiatry & Neurology Psychiatry; ATTEND Psychiatry & Neurology Psychiatry
DX: G30.8 Other Alzheimer's disease (principal); N17.9 Acute kidney failure, unspecified; F10.27 Alcohol dependence with alcohol-induced persisting dementia; F02.81 Dementia in other diseases classified elsewhere, unspecified severity, with behavioral disturbance; I48.2 Chronic atrial fibrillation; Z91.14 Patient's other noncompliance with medication regimen; N40.0 Benign prostatic hyperplasia without lower urinary tract symptoms; I10 Essential (primary) hypertension; Y90.2 Blood alcohol level of 40-59 mg/100 ml
CPT/HCPCS: 80048; 80053; 80061; 80307; 80320; 80329; 81001; 83036; 85025; 85610; 85730; 93005; 96360; G0378; G0480; J7030; J7040; Q0163